=== PATIENT | male | born 1930 | race Caucasian/White ===

== ENCOUNTER 2017-04-26 07:40 | Inpatient (IN) | payer MEDICARE ==
[~2017-04-26] VITALS: Ht 168 cm; Wt 68.6 kg
--- NOTE | ~2017-04-26 | PROC NOTE ---
[place], [place] PROCEDURE NOTE NAME: JOSÉ MIGUEL COLE [facility] #: [id number] UNIT #: [id number] ROOM: 502 DOCTOR: MARCY FULLER BIRTHDATE: [birth year] DOS: 04/28/2017 MODIFIED BARIUM SWALLOW LOCATION: [facility], room 502, bed 2. DOCTOR: Ryder Singleton DO RADIOLOGIST: Dr. Thompson. BACKGROUND INFORMATION: The patient, an 86-year-old male, was seen for a modified barium swallow. This test was ordered to rule out aspiration. The patient has suffered from recurrent pneumonia. Medical history includes leukocytosis, tachycardia, lactic acidosis, hypertension, GERD, AAA, anxiety, malnutrition, breast cancer. The patient underwent gastric bypass surgery 2 years ago. The patient currently receives a regular diet and thin liquids. He reports no difficulty with chewing or swallowing. For today's assessment, he was alert and able to follow all commands. Respiratory status was within normal limits. Oral peripheral examination revealed presence of upper denture and partial bottom plate. He reported adequate fit. Lingual, labial, and buccal skills were within normal limits in terms of strength, range of motion, and coordination. The patient was able to volitionally cough and swallow. METHODS AND MATERIALS USED FOR THE EXAM: The patient was positioned in the lateral plane and examination was viewed under fluoroscopy. The patient was presented with a variety of consistencies to assess swallowing skills including applesauce mixed with barium presented in half teaspoon amounts, barium-coated cookie and sandwich presented in bite size pieces and thin liquid barium taken by cup. The patient took the cup and swallowed in his normal sip size amount. ORAL PHASE: The patient achieved adequate labial seal around cup and spoon with no anterior loss. Bolus formation and transit were adequate. Mastication was adequate. Tongue to palate contact was within normal limits. Tongue to posterior pharyngeal wall contact was mildly impaired with solids. Velar functioning was within normal limits with no nasal regurgitation. PHARYNGEAL PHASE: The pharyngeal swallow occurred within a timely manner. During the swallow, laryngeal elevation and epiglottic function were within normal limits. No penetration or aspiration occurred with any consistency. Some residue in the vallecula did remain with puree and solid. This residue cleared with liquid wash. ESOPHAGEAL PHASE: This phase of the swallow was not formally assessed during this examination. IMPRESSIONS AND RECOMMENDATIONS: Based upon assessment results, this 86-year-old patient presents with a mild oropharyngeal dysphagia characterized by mildly reduced tongue to posterior pharyngeal wall contact. This resulted in [place], [place] PROCEDURE NOTE NAME: JOSÉ MIGUEL COLE UNIT #: [id number] ROOM: [facility] DOCTOR: MARCY FULLER BIRTHDATE: [birth year] residue in the vallecula with puree and solid. The residue cleared with liquid wash. No penetration or aspiration occurred with any consistency. Recommend the patient remain on regular diet and thin liquid. Recommend use of safe swallow strategies such as alternating liquid and solids in small bites and sips. Short term followup therapy is recommended for one to two visits focusing on education to ensure implementation of strategies. Results and recommendations were shared with the patient and his nurse and they verbalized understanding. Thank you very much for this referral. Should you have any questions regarding this patient, please contact the speech pathologist at [phone]. MARCY FULLER CM:PROCNOTE:PROCEDURE NOTE [id number] MARCY FULLER
[~2017-04-26 07:40] MED LIST: CIPRODEX 0.3%-7.5 M1 OT; HYDROCODONE BIT1 T36 PO; LISINOPRIL/HCTZ1 TA3 PO; OMEPRAZOLE10 MG PO; PAROXETINE HCL10 MG PO; PROSCAR5 MG PO; REQUIP0.25 MG PO; TRIAZOLAM0.25 MG PO; [UNRECOGNIZED DRUG - CODE]
[2017-04-26 07:51] VITALS: BP 96/52
[2017-04-26 08:00] LABS: BASO % 0.2 % (0.0-1.0); EOS % 0.2 % (1.0-4.0); HEMATOCRIT 35.9 % (42.0-52.0); HEMOGLOBIN 11.8 g/dl (14.0-18.0); IG # 0.1 10*3/uL (0.0-0.1); LYMPH # 0.9 10*3/uL (1.3-4.4); LYMPH % 6.2 % (27.0-41.0); MEAN CELL VOLUME 88.9 fl (80.0-94.0); MEAN CORPUSCULAR HGB 29.2 pg (27.0-31.0); MEAN CORPUSCULAR HGB CONC 32.9 g/dl (33.0-37.0); MEAN PLATELET VOLUME 9.7 fl (9.6-12.3); MONO # 1.5 10*3/uL (0.1-1.0); MONO % 10.7 % (3.0-9.0); NEUT # 11.5 10*3/uL (2.3-7.9); NEUT % 82.3 % (47.0-73.0); PLATELET COUNT AUTOMATED 162 10*3/uL (130-400); RED BLOOD COUNT 4.04 10*6/uL (4.50-5.90); RED CELL DISTRI WIDTH 13.5 % (0-14.5); WHITE BLOOD COUNT 13.9 10*3/uL (4.8-10.8)
[2017-04-26 08:11] LABS: PROTHROMBIN TIME 10.4 SECONDS (9.0-12.4)
[2017-04-26 08:28] LABS: ALBUMIN 3.3 gm/dl (3.1-4.5); ALKALINE PHOSPHATASE 77 U/L (45-117); BILIRUBIN, TOTAL 0.3 mg/dl (0.2-1.0); BUN 22 mg/dl (7-24); CARBON DIOXIDE 24 mmol/L (21-32); CHLORIDE 107 mmol/L (98-107); EST GLOM FILT AFRICAN AMERICAN > 60 ml/min; GLUCOSE 117 mg/dL (65-99); MAGNESIUM 1.7 mg/dL (1.5-2.1); POTASSIUM 3.7 mmol/L (3.5-5.1); SGOT/AST 34 IU/L (3-35); SGPT/ALT 24 U/L (12-78); SODIUM 141 mmol/L (136-145); TOTAL PROTEIN 6.4 gm/dL (6.4-8.2)
[2017-04-26 08:48] LABS: TROPONIN I < 0.015 ng/ml (<0.045)
[2017-04-26 10:05] LABS: LA>2 REFLEX 2 HR DRAW NOW
[2017-04-26 10:41] VITALS: BP 117/58
[2017-04-26] MEDS ORDERED: MIRALAX17 GM PO (10:56)
[2017-04-26] MEDS ORDERED: PROSCAR5 M1 PO (10:57)
[2017-04-26] MEDS ORDERED: ZOLOFT50 MG PO (10:59)
[2017-04-26] MEDS ORDERED: LEVOTHYROXINE0.05 MG PO (11:00)
[2017-04-26] MEDS ORDERED: REGLAN5 MG PO (11:01)
[2017-04-26] MEDS ORDERED: AMITIZA8 MCG PO (11:01)
[2017-04-26] MEDS ORDERED: TERAZOSIN HCL2 M1 PO (11:02)
[2017-04-26] MEDS ORDERED: REQUIP2 M2 PO (11:02)
[2017-04-26] MEDS ORDERED: XANAX1 MG PO (11:04)
[2017-04-26] MEDS ORDERED: ACETAMINOPHEN &1 TA1 PO (11:05)
[2017-04-26 12:14] LABS: CKMB 0.6 ng/ml (0.5-3.6)
[2017-04-26 16:00] VITALS: BP 120/76; BP 134/72
[2017-04-26 16:53] LABS: CKMB 0.6 ng/ml (0.5-3.6)
[2017-04-26 20:00] VITALS: BP 117/52
[2017-04-27] VITALS: BP 131/60
[2017-04-27 00:35] LABS: CKMB < 0.5 ng/ml (0.5-3.6); CPK 30 U/L (39-308)
[2017-04-27 06:23] LABS: HEMOGLOBIN A1c 5.2 % (4.8-5.6)
[2017-04-27 06:26] LABS: BASO % 0.3 % (0.0-1.0); EOS # 0.4 10*3/uL (0.0-0.4); EOS % 3.9 % (1.0-4.0); LYMPH # 2.3 10*3/uL (1.3-4.4); LYMPH % 21.6 % (27.0-41.0); MEAN CORPUSCULAR HGB 29.5 pg (27.0-31.0); MEAN CORPUSCULAR HGB CONC 32.4 g/dl (33.0-37.0); MEAN PLATELET VOLUME 10.4 fl (9.6-12.3); MONO # 1.1 10*3/uL (0.1-1.0); MONO % 10.6 % (3.0-9.0); NEUT # 6.7 10*3/uL (2.3-7.9); NEUT % 63.3 % (47.0-73.0); PLATELET COUNT AUTOMATED 154 10*3/uL (130-400); RED BLOOD COUNT 3.22 10*6/uL (4.50-5.90); RED CELL DISTRI WIDTH 13.8 % (0-14.5); WHITE BLOOD COUNT 10.6 10*3/uL (4.8-10.8)
[2017-04-27 06:28] LABS: HEMATOCRIT 29.3 % (42.0-52.0); HEMOGLOBIN 9.5 g/dl (14.0-18.0)
[2017-04-27 06:47] LABS: BUN 15 mg/dl (7-24); CARBON DIOXIDE 26 mmol/L (21-32); CHLORIDE 112 mmol/L (98-107); GLUCOSE 83 mg/dL (65-99); POTASSIUM 3.7 mmol/L (3.5-5.1); SODIUM 145 mmol/L (136-145)
[2017-04-27 06:55] LABS: FOLIC ACID 18.78 ng/mL (>5.38)
[2017-04-27 06:58] LABS: EST GLOM FILT AFRICAN AMERICAN > 60 ml/min; FREE T4 0.89 ng/dl (0.76-1.46)
[2017-04-27 08:00] VITALS: BP 126/58
[2017-04-27] MEDS ORDERED: PRESERVISION A1 EAC1 PO (10:39)
[2017-04-27 12:00] VITALS: BP 128/46; BP 148/60
[2017-04-27 16:00] VITALS: BP 140/46
[2017-04-27 20:00] VITALS: BP 127/50
[2017-04-28] VITALS: BP 110/54
[2017-04-28 06:20] LABS: BASO % 0.5 % (0.0-1.0); EOS # 0.5 10*3/uL (0.0-0.4); EOS % 5.8 % (1.0-4.0); HEMATOCRIT 29.9 % (42.0-52.0); HEMOGLOBIN 9.7 g/dl (14.0-18.0); LYMPH % 22.9 % (27.0-41.0); MEAN CELL VOLUME 90.1 fl (80.0-94.0); MEAN CORPUSCULAR HGB 29.2 pg (27.0-31.0); MEAN CORPUSCULAR HGB CONC 32.4 g/dl (33.0-37.0); MEAN PLATELET VOLUME 9.5 fl (9.6-12.3); MONO # 1.1 10*3/uL (0.1-1.0); MONO % 12.7 % (3.0-9.0); NEUT % 57.8 % (47.0-73.0); PLATELET COUNT AUTOMATED 144 10*3/uL (130-400); RED BLOOD COUNT 3.32 10*6/uL (4.50-5.90); RED CELL DISTRI WIDTH 13.6 % (0-14.5); WHITE BLOOD COUNT 8.7 10*3/uL (4.8-10.8)
[2017-04-28 08:00] VITALS: BP 132/48
[2017-04-28 12:00] VITALS: BP 136/60
[2017-04-28 16:00] VITALS: BP 122/58
[2017-04-28 20:00] VITALS: BP 142/81
[2017-04-29] VITALS: BP 146/64
[2017-04-29 08:00] VITALS: BP 143/69
[2017-04-29] MEDS ORDERED: LEVAQUIN750 M1 PO (10:29)
[2017-04-29] MEDS ORDERED: B-12500 MC1 PO (10:29)
[2017-04-29] MEDS ORDERED: CLEOCIN HCL300 MG PO (10:29)
== END 2017-04-29 13:18 | disposition home or self-care (01) | DRG 871 ==
LOC: ED 07:40 → EDHOLD 09:35 → 5E 09:35
PROVIDERS: Emergency Medicine; Internal Medicine
PROC: BD1BYZZ Fluoroscopy of Mouth/Oropharynx using Other Contrast (ICD-10-PCS; principal; 2017-04-28)
DX: A41.9 Sepsis, unspecified organism (principal); J18.1 Lobar pneumonia, unspecified organism; K31.5 Obstruction of duodenum; E44.1 Mild protein-calorie malnutrition; R65.20 Severe sepsis without septic shock; E53.8 Deficiency of other specified B group vitamins; F41.9 Anxiety disorder, unspecified; E03.9 Hypothyroidism, unspecified; Z96.1 Presence of intraocular lens; I71.4 Abdominal aortic aneurysm, without rupture; Z68.24 Body mass index [BMI] 24.0-24.9, adult; Z90.13 Acquired absence of bilateral breasts and nipples; Z85.3 Personal history of malignant neoplasm of breast; Z90.49 Acquired absence of other specified parts of digestive tract; Z98.84 Bariatric surgery status; Z98.49 Cataract extraction status, unspecified eye; Z87.891 Personal history of nicotine dependence; Z84.89 Family history of other specified conditions; Z82.49 Family history of ischemic heart disease and other diseases of the circulatory system; Z79.899 Other long term (current) drug therapy

== ENCOUNTER 2017-11-07 16:01 | Inpatient (IN) | payer MEDICARE ==
[~2017-11-07] VITALS: Ht 167.6 cm; Wt 63.5 kg
--- NOTE | ~2017-11-07 | EKG ---
[place], [place] ELECTROCARDIOGRAM REPORT NAME: JOSÉ MIGUEL COLE UNIT #: [id number] ROOM: 509 DOCTOR: NICOLASA GUERRA,THOR BIRTHDATE: [birth year] DOS: 11/07/2017 TIME: 1559 hours. IMPRESSION: 1. Sinus tachycardia with supraventricular ectopy. 2. Left ventricular hypertrophy. 3. Nonspecific ST-T changes. THOR BALDWIN MD CM:EKGRPT:ELECTROCARDIOGRAM REPORT [id number] THOR BALDWIN MD
[~2017-11-07 16:01] MED LIST changes: +ACETAMINOPHEN &1 TA1 PO; +AMITIZA8 MCG PO; +B-12500 MC1 PO; +CLEOCIN HCL300 MG PO; +LEVAQUIN750 M1 PO; +LEVOTHYROXINE0.05 MG PO; +MIRALAX17 GM PO; +PRESERVISION A1 EAC1 PO; +PROSCAR5 M1 PO; +REGLAN5 MG PO; +REQUIP2 M2 PO; +TERAZOSIN HCL2 M1 PO; +XANAX1 MG PO; +ZOLOFT50 MG PO
[2017-11-07 16:18] VITALS: BP 102/56
[2017-11-07] MEDS ORDERED: TERAZOSIN HCL2 M1 PO (16:18)
--- NOTE | 2017-11-07 16:45 | NUR ---
ASA NOT GIVEN DUE TO PATIENT RECEIVING 324 ASA BY EMS EN ROUTE TO ER. DR MAYERS AWARE.
[2017-11-07 16:46] VITALS: BP 118/56
[2017-11-07 16:46] LABS: BASO % 0.3 % (0.0-1.0); EOS # 0.2 10*3/uL (0.0-0.4); EOS % 2.5 % (1.0-4.0); HEMATOCRIT 34.7 % (42.0-52.0); HEMOGLOBIN 11.2 g/dl (14.0-18.0); LYMPH # 0.9 10*3/uL (1.3-4.4); LYMPH % 9.3 % (27.0-41.0); MEAN CELL VOLUME 91.8 fl (80.0-94.0); MEAN CORPUSCULAR HGB 29.6 pg (27.0-31.0); MEAN CORPUSCULAR HGB CONC 32.3 g/dl (33.0-37.0); MEAN PLATELET VOLUME 9.7 fl (9.6-12.3); MONO # 0.5 10*3/uL (0.1-1.0); NEUT # 7.6 10*3/uL (2.3-7.9); NEUT % 82.7 % (47.0-73.0); PLATELET COUNT AUTOMATED 174 10*3/uL (130-400); RED BLOOD COUNT 3.78 10*6/uL (4.50-5.90); RED CELL DISTRI WIDTH 13.7 % (0-14.5); WHITE BLOOD COUNT 9.2 10*3/uL (4.8-10.8)
[2017-11-07 16:55] LABS: ACT PARTIAL THROMBO TIME 25.5 SECONDS (20.8-31.5)
[2017-11-07 17:05] LABS: ALBUMIN 3.2 gm/dl (3.1-4.5); ALKALINE PHOSPHATASE 72 U/L (45-117); BUN 21 mg/dl (7-24); CHLORIDE 108 mmol/L (98-107); POTASSIUM 4.3 mmol/L (3.5-5.1); SGOT/AST 22 IU/L (3-35); SGPT/ALT 16 U/L (12-78); SODIUM 140 mmol/L (136-145); TOTAL PROTEIN 6.7 gm/dL (6.4-8.2)
[2017-11-07 17:08] LABS: TROPONIN I < 0.015 ng/ml (<0.045)
[2017-11-07 17:43] VITALS: BP 100/56
[2017-11-07 18:39] VITALS: BP 108/56; BP 130/50
--- NOTE | 2017-11-07 20:00 | NUR ---
A 86, admitted to , under the services of SOFYA Gan DO with a diagnosis of PNEUMONIA. Chief complaint is CHEST PAIN. Patient arrived via OTHER from ER. Monitor applied. Initial assessment completed. Vital signs taken and recorded. SOFYA GAN DO notified of admission to the unit. Orders received. See assessment for past medical history, medications and allergies. Patient and/or family oriented to unit. [facility] visitation policy reviewed. Clothing/patient valuable form completed. SARBJIT BEST
--- NOTE | 2017-11-07 20:03 | NUR ---
EXCORIATION AND REDNESS NOTED TO SACRAL AREA OF BUTTOCKS
[2017-11-07] MEDS ORDERED: PROSCAR5 M1 PO (20:37)
[2017-11-08] VITALS: BP 100/50
[2017-11-08 06:07] LABS: BASO % 0.3 % (0.0-1.0); EOS # 0.2 10*3/uL (0.0-0.4); HEMATOCRIT 29.8 % (42.0-52.0); HEMOGLOBIN 9.6 g/dl (14.0-18.0); LYMPH # 2.1 10*3/uL (1.3-4.4); LYMPH % 14.6 % (27.0-41.0); MEAN CELL VOLUME 92.8 fl (80.0-94.0); MEAN CORPUSCULAR HGB 29.9 pg (27.0-31.0); MEAN CORPUSCULAR HGB CONC 32.2 g/dl (33.0-37.0); MEAN PLATELET VOLUME 10.4 fl (9.6-12.3); MONO # 1.4 10*3/uL (0.1-1.0); MONO % 9.6 % (3.0-9.0); NEUT # 10.9 10*3/uL (2.3-7.9); NEUT % 74.1 % (47.0-73.0); PLATELET COUNT AUTOMATED 162 10*3/uL (130-400); RED BLOOD COUNT 3.21 10*6/uL (4.50-5.90); RED CELL DISTRI WIDTH 14.1 % (0-14.5); WHITE BLOOD COUNT 14.7 10*3/uL (4.8-10.8)
[2017-11-08 06:33] LABS: ALBUMIN 2.6 gm/dl (3.1-4.5); ALKALINE PHOSPHATASE 57 U/L (45-117); BUN 21 mg/dl (7-24); CHLORIDE 110 mmol/L (98-107); CREATININE 1.01 mg/dL (0.70-1.30); PHOSPHOROUS 3.2 mg/dL (2.5-4.9); POTASSIUM 4.2 mmol/L (3.5-5.1); SGOT/AST 12 IU/L (3-35); SGPT/ALT 14 U/L (12-78); SODIUM 141 mmol/L (136-145); TOTAL PROTEIN 5.5 gm/dL (6.4-8.2)
[2017-11-08 06:45] LABS: ACT PARTIAL THROMBO TIME 30.7 SECONDS (20.8-31.5); INTERNATIONAL NORM RATIO 1.1 (2.0-3.5)
[2017-11-08 08:00] VITALS: BP 115/39
--- NOTE | 2017-11-08 11:52 | NUR ---
MEDICATED WITH PRN PO XANAX FOR ANXIETY.
[2017-11-08 12:00] VITALS: BP 136/50
--- NOTE | 2017-11-08 12:57 | NUR ---
MEDICATED WITH PRN PO NORCO FOR BACK AND LEFT SIDE RIB CAGE PAIN.
--- NOTE | 2017-11-08 14:14 | NUR ---
PRN PO XANAX AND NORCO EFFECTIVE, PER PATIENT.
[2017-11-08 16:00] VITALS: BP 126/47
[2017-11-08 20:00] VITALS: BP 133/54
--- NOTE | 2017-11-08 21:48 | NUR ---
PATIENT REQUEST CHESWOLD FOR BACK PAIN 06/26. PAIN MEDICATION GIVEN PER PRN ORDER.
--- NOTE | 2017-11-08 22:30 | NUR ---
PATIENT STATES THAT PAIN HAD SUBSIDED IN HIS BACK. PAIN NOW 03/26.
[2017-11-09] VITALS: BP 102/72
--- NOTE | 2017-11-09 03:05 | NUR ---
PATIENT LYING IN BED SLEEPING ALL EVENING. NO S/S OF DISTRESS NOTED.
--- NOTE | 2017-11-09 04:16 | NUR ---
24 HR chart check completed.
--- NOTE | 2017-11-09 05:05 | NUR ---
TAMARA REQUESTED PAIN MEDICATION FOR PAIN IN HIS BACK, 06/26. MICHELLE PER PRN ORDER
[2017-11-09 06:03] LABS: BASO % 0.5 % (0.0-1.0); EOS # 0.6 10*3/uL (0.0-0.4); EOS % 6.8 % (1.0-4.0); HEMATOCRIT 26.4 % (42.0-52.0); HEMOGLOBIN 8.6 g/dl (14.0-18.0); LYMPH # 2.1 10*3/uL (1.3-4.4); MEAN CORPUSCULAR HGB 29.7 pg (27.0-31.0); MEAN CORPUSCULAR HGB CONC 32.6 g/dl (33.0-37.0); MEAN PLATELET VOLUME 10.2 fl (9.6-12.3); MONO # 0.8 10*3/uL (0.1-1.0); MONO % 8.9 % (3.0-9.0); NEUT # 5.3 10*3/uL (2.3-7.9); NEUT % 59.5 % (47.0-73.0); PLATELET COUNT AUTOMATED 144 10*3/uL (130-400); RED CELL DISTRI WIDTH 14.3 % (0-14.5); WHITE BLOOD COUNT 8.9 10*3/uL (4.8-10.8)
[2017-11-09 06:27] LABS: BUN 14 mg/dl (7-24); CHLORIDE 114 mmol/L (98-107); CREATININE 0.81 mg/dL (0.70-1.30); PHOSPHOROUS 2.4 mg/dL (2.5-4.9); POTASSIUM 3.7 mmol/L (3.5-5.1); SODIUM 143 mmol/L (136-145)
[2017-11-09 08:00] VITALS: BP 150/66
[2017-11-09] MEDS ORDERED: VIBRAMYCIN100 MG PO (11:39)
[2017-11-09] MEDS ORDERED: VITAMIN D31000 UNI1 PO (11:39)
--- NOTE | 2017-11-09 12:02 | NUR ---
PT DISCHARGED OFF THE FLOOR VIA WHEELCHAIR TO PRIVATE CAR. DISCHARGE INSTRUCTIONS REVIEWED.
== END 2017-11-09 12:02 | disposition home or self-care (01) | DRG 871 ==
LOC: ED 16:01 → EDHOLD 18:44 → 5E 18:54
PROVIDERS: Emergency Medicine; Family Medicine; Internal Medicine Nephrology; ADMIT Emergency Medicine
DX: A41.9 Sepsis, unspecified organism (principal); E43 Unspecified severe protein-calorie malnutrition; J18.9 Pneumonia, unspecified organism; K31.5 Obstruction of duodenum; F33.40 Major depressive disorder, recurrent, in remission, unspecified; D64.9 Anemia, unspecified; E83.42 Hypomagnesemia; D72.810 Lymphocytopenia; R73.9 Hyperglycemia, unspecified; E03.9 Hypothyroidism, unspecified; I71.4 Abdominal aortic aneurysm, without rupture; E53.8 Deficiency of other specified B group vitamins; F41.1 Generalized anxiety disorder; N40.0 Benign prostatic hyperplasia without lower urinary tract symptoms; K21.9 Gastro-esophageal reflux disease without esophagitis; E83.39 Other disorders of phosphorus metabolism; Z85.3 Personal history of malignant neoplasm of breast; Z87.891 Personal history of nicotine dependence; Z82.49 Family history of ischemic heart disease and other diseases of the circulatory system; Z84.89 Family history of other specified conditions; Z68.22 Body mass index [BMI] 22.0-22.9, adult; Z90.13 Acquired absence of bilateral breasts and nipples; Z98.49 Cataract extraction status, unspecified eye; Z96.1 Presence of intraocular lens

== ENCOUNTER 2017-11-24 10:24 | Inpatient (IN) | payer MEDICARE ==
[~2017-11-24] VITALS: Ht 165.1 cm; Wt 59.4 kg
--- NOTE | ~2017-11-24 | EKG ---
[place], [place] ELECTROCARDIOGRAM REPORT NAME: JOSÉ MIGUEL COLE UNIT #: [id number] ROOM: 425 DOCTOR: LISA GARCIA MD BIRTHDATE: [birth year] DOS: 11/25/2017 IMPRESSION: Normal sinus rhythm, normal ECG. Lisa Garcia MD CM:EKGRPT:ELECTROCARDIOGRAM REPORT 32 [phone] LISA GARCIA MD
--- NOTE | ~2017-11-24 | CON ---
[place], [place] REPORT OF CONSULTATION [id number] UN[facility] #: [id number] ROOM: 425 DOCTOR: ERYN BRANHAM ED.D (IVIS) BIRTHDATE: [birth year] DOS: 11/26/2017 HISTORY OF PRESENT ILLNESS: The patient is an 87-year-old male referred for counseling and evaluation regarding his son's last year. At the present time, this patient is on the 4th floor at [facility]. He is and he has one daughter living and his son 1 year ago. The patient has had a great deal of difficulty getting over his . 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 His family physician is Dr. Vides and his medical history is pertinent for aortic aneurysm, BPH, major depressive disorder, GERD and malnutrition. His medications include Xanax, vitamin D3, Percocet, Synthroid, Prilosec, Requip, Zoloft and terazosin. This patient denies any significant substance abuse issues. He was awake, alert and oriented in all three spheres. He had no difficulty whatsoever conversing and discussing issues related to his son's last year. His insight, judgment and concentration are good. This patient indicated he was very depressed about the of his son last year. His son apparently had some type of sleep apnea and did not sleep with his CPAP and during the night. The patient was quite devastated and shocked about this and it been very difficult. The son was cremated and his remains were spread [place] a [place] in [place] and the patient states he has no tangible evidence of his son's , even though he knows he is . He has a great deal of difficulty coping with his and the fact there is no grave site for his son. I encouraged the patient to seek counseling and gave him my card and he may follow up in my office. He is on Zoloft and he has multiple medical problems, so it is unlikely many of the drugs will help and he did not want to take anything other than the Zoloft, regardless. DIAGNOSIS: Major depressive disorder -- recurrent. RECOMMENDATIONS: 1. The patient should consider counseling. 2. The patient should continue his antidepressant medications. Thank you very much for this consult. [place], [place] REPORT OF CONSULTATION NAME: JOSÉ MIGUEL COLE UNIT #: [id number] ROOM: 425 DOCTOR: ERYN BRANHAM ED.D (IVIS) BIRTHDATE: [birth year] ERYN BRANHAM ED.D CM:CONSTR:REPORT OF CONSULTATION 1521 11/26/17 2311 interface
[~2017-11-24 10:24] MED LIST changes: +VIBRAMYCIN100 MG PO; +VITAMIN D31000 UNI1 PO
[2017-11-24 10:32] VITALS: BP 138/64
[2017-11-24 11:26] LABS: BASO # 0.1 10*3/uL (0.0-0.1); BASO % 0.6 % (0.0-1.0); EOS # 0.3 10*3/uL (0.0-0.4); EOS % 3.2 % (1.0-4.0); HEMATOCRIT 33.5 % (42.0-52.0); HEMOGLOBIN 10.7 g/dl (14.0-18.0); LYMPH # 1.9 10*3/uL (1.3-4.4); LYMPH % 23.9 % (27.0-41.0); MEAN CELL VOLUME 90.3 fl (80.0-94.0); MEAN CORPUSCULAR HGB 28.8 pg (27.0-31.0); MEAN CORPUSCULAR HGB CONC 31.9 g/dl (33.0-37.0); MEAN PLATELET VOLUME 10.1 fl (9.6-12.3); MONO # 0.6 10*3/uL (0.1-1.0); MONO % 7.1 % (3.0-9.0); NEUT # 5.3 10*3/uL (2.3-7.9); PLATELET COUNT AUTOMATED 214 10*3/uL (130-400); RED BLOOD COUNT 3.71 10*6/uL (4.50-5.90); RED CELL DISTRI WIDTH 13.3 % (0-14.5); WHITE BLOOD COUNT 8.1 10*3/uL (4.8-10.8)
[2017-11-24 11:36] LABS: ACT PARTIAL THROMBO TIME 27.9 SECONDS (20.8-31.5)
[2017-11-24 11:41] LABS: ALKALINE PHOSPHATASE 81 U/L (45-117); BUN 20 mg/dl (7-24); CHLORIDE 102 mmol/L (98-107); CREATININE 1.02 mg/dL (0.70-1.30); LIPASE 117 U/L (73-393); POTASSIUM 4.9 mmol/L (3.5-5.1); SGOT/AST 21 IU/L (3-35); SGPT/ALT 17 U/L (12-78); SODIUM 136 mmol/L (136-145); TOTAL PROTEIN 6.6 gm/dL (6.4-8.2)
[2017-11-24 11:42] LABS: TROPONIN I < 0.015 ng/ml (<0.045)
[2017-11-24 13:40] LABS: BILIRUBIN NEGATIVE (NEGATIVE); BLOOD 3+ (NEGATIVE); CLARITY CLEAR (CLEAR); COLOR YELLOW (YELLOW); GLUCOSE NEGATIVE (NEGATIVE); KETONE NEGATIVE (NEGATIVE); LEUKO ESTERASE NEGATIVE (NEGATIVE); NITRITE NEGATIVE (NEGATIVE); UROBILINOGEN 0.2 E.U./dl (0.2-1.0)
[2017-11-24 13:47] LABS: RBC TNTC rbc/hpf (0-2)
[2017-11-24 14:12] VITALS: BP 162/75
[2017-11-24] MEDS ORDERED: PRILOSEC20 M1 PO (14:47)
[2017-11-24 16:00] VITALS: BP 168/85
[2017-11-24 20:00] VITALS: BP 127/76
[2017-11-25] VITALS: BP 131/80
[2017-11-25 04:00] VITALS: BP 131/80
[2017-11-25 07:20] LABS: BASO % 0.3 % (0.0-1.0); EOS # 0.2 10*3/uL (0.0-0.4); EOS % 1.4 % (1.0-4.0); HEMATOCRIT 37.3 % (42.0-52.0); LYMPH # 3.3 10*3/uL (1.3-4.4); LYMPH % 28.3 % (27.0-41.0); MEAN CELL VOLUME 90.1 fl (80.0-94.0); MEAN CORPUSCULAR HGB CONC 32.2 g/dl (33.0-37.0); MEAN PLATELET VOLUME 10.2 fl (9.6-12.3); MONO # 0.8 10*3/uL (0.1-1.0); NEUT # 7.2 10*3/uL (2.3-7.9); NEUT % 62.7 % (47.0-73.0); PLATELET COUNT AUTOMATED 269 10*3/uL (130-400); RED BLOOD COUNT 4.14 10*6/uL (4.50-5.90); RED CELL DISTRI WIDTH 13.5 % (0-14.5); WHITE BLOOD COUNT 11.6 10*3/uL (4.8-10.8)
[2017-11-25 07:34] LABS: BUN 17 mg/dl (7-24); CHLORIDE 104 mmol/L (98-107); CHOLESTEROL 177 mg/dL (<200); CREATININE 1.08 mg/dL (0.70-1.30); HDL CHOLESTEROL 39 mg/dl (40-60); LDL CHOLESTEROL 101 mg/dL (9-159); PHOSPHOROUS 3.5 mg/dL (2.5-4.9); POTASSIUM 4.5 mmol/L (3.5-5.1); SODIUM 138 mmol/L (136-145); TRIGLYCERIDES 187 mg/dl (<150); VLDL CHOLESTEROL 37 mg/dL (6-40)
[2017-11-25 07:41] LABS: THYROID STIM HORMONE (HS) 0.747 uIU/ml (0.358-4.75)
[2017-11-25 08:00] VITALS: BP 140/78
[2017-11-25 08:38] LABS: VITAMIN D, 25-HYDROXY 16.3 ng/mL (30-100)
[2017-11-25 12:00] VITALS: BP 119/76
[2017-11-25 16:00] VITALS: BP 125/71
[2017-11-25 19:36] VITALS: BP 146/78
[2017-11-26] VITALS: BP 138/91
[2017-11-26 07:16] LABS: BASO # 0.1 10*3/uL (0.0-0.1); BASO % 0.6 % (0.0-1.0); EOS # 0.2 10*3/uL (0.0-0.4); EOS % 1.9 % (1.0-4.0); HEMATOCRIT 36.4 % (42.0-52.0); HEMOGLOBIN 11.6 g/dl (14.0-18.0); LYMPH # 2.3 10*3/uL (1.3-4.4); LYMPH % 25.2 % (27.0-41.0); MEAN CORPUSCULAR HGB 28.4 pg (27.0-31.0); MEAN CORPUSCULAR HGB CONC 31.9 g/dl (33.0-37.0); MEAN PLATELET VOLUME 10.1 fl (9.6-12.3); MONO # 0.9 10*3/uL (0.1-1.0); MONO % 9.7 % (3.0-9.0); NEUT # 5.7 10*3/uL (2.3-7.9); NEUT % 62.4 % (47.0-73.0); PLATELET COUNT AUTOMATED 253 10*3/uL (130-400); RED BLOOD COUNT 4.09 10*6/uL (4.50-5.90); RED CELL DISTRI WIDTH 13.3 % (0-14.5); WHITE BLOOD COUNT 9.1 10*3/uL (4.8-10.8)
[2017-11-26 07:38] LABS: BUN 17 mg/dl (7-24); CHLORIDE 103 mmol/L (98-107); CREATININE 1.09 mg/dL (0.70-1.30); POTASSIUM 4.2 mmol/L (3.5-5.1); SODIUM 139 mmol/L (136-145)
[2017-11-26 08:00] VITALS: BP 144/77
[2017-11-26 12:00] VITALS: BP 117/58
[2017-11-26] MEDS ORDERED: ALPRAZOLAM0.5 M3 PO (14:01)
[2017-11-26] MEDS ORDERED: DOXYCYCLINE MO100 M1 PO (14:01)
== END 2017-11-26 16:07 | disposition home health service (06) | DRG 194 ==
LOC: ED 10:24 → EDHOLD 13:39 → 4E 13:39
PROVIDERS: Emergency Medicine; Internal Medicine; Internal Medicine Hospice and Palliative Medicine
DX: J18.1 Lobar pneumonia, unspecified organism (principal); E44.0 Moderate protein-calorie malnutrition; R65.10 Systemic inflammatory response syndrome (SIRS) of non-infectious origin without acute organ dysfunction; R31.9 Hematuria, unspecified; K31.5 Obstruction of duodenum; D64.9 Anemia, unspecified; F33.9 Major depressive disorder, recurrent, unspecified; E83.41 Hypermagnesemia; R26.81 Unsteadiness on feet; I71.4 Abdominal aortic aneurysm, without rupture; G25.81 Restless legs syndrome; R73.9 Hyperglycemia, unspecified; E03.9 Hypothyroidism, unspecified; F41.1 Generalized anxiety disorder; Z96.1 Presence of intraocular lens; W18.30XA Fall on same level, unspecified, initial encounter; N40.0 Benign prostatic hyperplasia without lower urinary tract symptoms; K21.9 Gastro-esophageal reflux disease without esophagitis; R42 Dizziness and giddiness; G89.29 Other chronic pain; E78.1 Pure hyperglyceridemia; Z90.13 Acquired absence of bilateral breasts and nipples; Z98.49 Cataract extraction status, unspecified eye; Z90.49 Acquired absence of other specified parts of digestive tract; Z87.891 Personal history of nicotine dependence; Z82.49 Family history of ischemic heart disease and other diseases of the circulatory system; Z79.1 Long term (current) use of non-steroidal anti-inflammatories (NSAID); Z79.899 Other long term (current) drug therapy; Z68.21 Body mass index [BMI] 21.0-21.9, adult; Z85.3 Personal history of malignant neoplasm of breast; Y93.89 Activity, other specified; Y92.091 Bathroom in other non-institutional residence as the place of occurrence of the external cause; Y99.8 Other external cause status

== ENCOUNTER → 2018-08-31 | Outpatient (CLI) | payer MEDICARE ==
[~2018-08-31] MED LIST changes: +ALPRAZOLAM0.5 M3 PO; +DOXYCYCLINE MO100 M1 PO; +PRILOSEC20 M1 PO
[2018-08-31 10:26] LABS: CREATININE 0.94 mg/dL (0.70-1.30)
== END | disposition home or self-care (01) ==
LOC: MRI 08-28 10:00 → LAB 09:49 → MRI 10:00
PROVIDERS: Radiology Diagnostic Radiology
DX: H90.5 Unspecified sensorineural hearing loss (principal)